=== PATIENT | female | born 1990 | race Caucasian/White ===

== ENCOUNTER 2016-04-23 02:46 | Emergency (ER) | payer BC ==
[~2016-04-23 02:46] MED LIST: ACETAMINOPHEN120 ML PO; ANTIBEN EAR DRO15 ML OT; CEFZIL PO; CIPRO500 M2 PO; CIPRO500 MG PO; CYPROHEPTADINE H4 M1 PO; DELTASONE10 MG PO; FLUCONAZOLE100 MG PO; IMITREX100 M2 PO; IMITREX50 M2 PO; K-DUR20 MEQ PO; MACROBID 100 M100 MG PO; MACRODANTIN100 MG PO; NO MEDS; NORCO 5-325 TA1 EACH PO; NORCO 5/325 TAB1 TAB PO; PAXIL20 MG; TRILEPTAL300 MG; VITAMIN D35000 UNI3 PO; VITAMIN K2 PO; ZOFRAN ODT4 MG/UDTAB PO; [UNRECOGNIZED DRUG - OTHER]; [UNRECOGNIZED DRUG - OTHER]; [UNRECOGNIZED DRUG - OTHER] PO
[2016-04-23] MEDS ORDERED: TYLENOL EXTRA500 M1 PO (02:55)
[2016-04-23 03:10] LABS: URINE BILIRUBIN MODERATE (NEG); URINE BLOOD LARGE (NEG); URINE GLUCOSE (UA) NEGATIVE (NEG); URINE KETONE SMALL (NEG); URINE LEUKOCYTE ESTERASE NEGATIVE (NEG); URINE NITRITE POSITIVE (NEG); URINE PROTEIN MODERATE (NEG); URINE SPECIFIC GRAVITY 1.025 (1.003-1.030)
[2016-04-23 03:11] LABS: URINE APPEARANCE HAZY; URINE COLOR ORANGE
[2016-04-23 03:19] LABS: BASO % 0.2 % (0-2); EOS % 1.2 % (0-7); EOSINOPHIL ABSOLUTE COUNT 0.1 tho/cmm (0.0-0.7); HCT-HEMATOCRIT 35.7 % (34.0-49.0); HGB-HEMOGLOBIN 12.7 gm/dl (12.0-15.5); IMMATURE GRANULOCYTES ABSOLUTE 0.01 tho/cmm (0-0.03); IMMATURE GRANULOCYTES PERCENT 0.2 % (0-0.3); LYMPH % 56.1 % (20-45); LYMPH ABSOLUTE COUNT 2.9 tho/cmm (0.8-4.5); MCH (MEAN CORPUSCULAR HGB) 31.4 pg (28.0-32.0); MCHC MEAN CORPUSCULAR HGB CONC 35.6 % (32.0-36.0); MCV (MEAN CELL VOLUME) 88.4 fl (82.0-96.0); MEAN PLATELET VOLUME 9.7 cmc (9.4-12.4); MONO % 9.6 % (0-12); MONOCYTE ABSOLUTE COUNT 0.5 tho/cmm (0.0-1.2); NEUTROPHIL ABSOLUTE COUNT 1.7 tho/cmm (1.6-8.0); NEUTROPHIL-AUTOMATED 1.7 tho/cmm (1.6-8.0); NEUTROPHILS % 32.7 % (40-80); PLATELET COUNT 282 tho/cmm (150-450); RED BLOOD COUNT 4.04 mil/cmm (4.00-5.20); RED CELL DISTRIBUTION WIDTH 12.3 % (12.4-16.4); WHITE BLOOD COUNT 5.1 tho/cmm (4.0-10.0)
[2016-04-23 03:28] LABS: URINE EPITHELIAL CELLS 0-5 /[HPF] (0-10); URINE RBC 20-30 /[HPF] (0-5); URINE WBC 0-1 /[HPF] (0-5)
[2016-04-23 03:29] LABS: PREGNANCY-SERUM NEGATIVE (NEGATIVE)
[2016-04-23 03:36] LABS: ANION GAP 12 mmol/L (0-20); BLOOD UREA NITROGEN 13 mg/dl (6-24); CALCIUM 8.3 mg/dl (8.5-10.5); CARBON DIOXIDE-VENOUS 26 mmol/L (22-32); CHLORIDE 104 mmol/l (96-110); CREATININE 0.79 mg/dl (0.50-1.10); GLUCOSE 95 mg/dL (70-110); POTASSIUM 3.1 mmol/L (3.7-5.1); SODIUM 139 mmol/L (135-145); eGFR VALUE FOR BLACK >90 mL/Min
[2016-04-23] MEDS ORDERED: NORCO 5/3251 TAB PO (04:28)
[2016-04-23] MEDS ORDERED: ZOFRAN4 M2 PO (04:28)
[2016-04-23] MEDS ORDERED: FLOMAX0.4 M1 PO (04:28)
== END 2016-04-23 04:38 ==
LOC: EDMED 02:46
PROVIDERS: Emergency Medicine
DX: N20.0 Calculus of kidney (principal); Z87.442 Personal history of urinary calculi
CPT/HCPCS: J1885; J2405; J7030

== ENCOUNTER 2016-04-25 13:03 | Emergency (ER) | payer BC ==
[~2016-04-25 13:03] MED LIST changes: +FLOMAX0.4 M1 PO; +NORCO 5/3251 TAB PO; +TYLENOL EXTRA500 M1 PO; +ZOFRAN4 M2 PO
[2016-04-25 13:35] LABS: URINE BILIRUBIN NEGATIVE (NEG); URINE BLOOD LARGE (NEG); URINE GLUCOSE (UA) NEGATIVE (NEG); URINE KETONE NEGATIVE (NEG); URINE LEUKOCYTE ESTERASE POSITIVE (NEG); URINE NITRITE NEGATIVE (NEG); URINE PROTEIN MODERATE (NEG)
[2016-04-25 13:37] LABS: URINE APPEARANCE CLEAR; URINE COLOR PALE YELLOW
[2016-04-25 13:44] LABS: URINE BACTERIA 1+; URINE MUCUS 1+; URINE RBC 30-40 /[HPF] (0-5)
[2016-04-25] MEDS ORDERED: BACTRIM DS TAB1 EAC2 PO (15:06)
== END 2016-04-25 15:30 ==
LOC: EDMED 13:03
PROVIDERS: Emergency Medicine
DX: N39.0 Urinary tract infection, site not specified (principal); N20.1 Calculus of ureter; B96.89 Other specified bacterial agents as the cause of diseases classified elsewhere
CPT/HCPCS: J1885; J2405

== ENCOUNTER 2016-04-27 19:58 | Emergency (ER) | payer BC ==
[~2016-04-27 19:58] MED LIST changes: +BACTRIM DS TAB1 EAC2 PO
== END 2016-04-27 22:46 ==
LOC: EDMED 19:58
DX: R51 Headache (principal); Z87.442 Personal history of urinary calculi; Z87.440 Personal history of urinary (tract) infections
CPT/HCPCS: J1885; J2405